=== PATIENT | male | born 1960 | race Caucasian/White ===

== ENCOUNTER 2022-03-21 17:32 | Emergency (ER) | payer BC, SELFPAY ==
[2022-03-21 17:47] VITALS: BP 174/92; PULSE 86; RESP 20; TEMP 37.3; O2SAT 98; BMI 40.4
[2022-03-21 18:30] VITALS: BP 168/86; PULSE 80; RESP 22; O2SAT 97
--- NOTE | 2022-03-21 18:53 | CRLHL7_ITS ---
For Patients: As a result of the Cures Act, medical imaging exams and procedure reports are released immediately into your electronic medical record. You may view this report before your referring provider. If you have questions, please contact your health care provider. INDICATION: Chest pain, COVID. TECHNIQUE: Chest radiograph 1 view COMPARISON: None FINDINGS: Cardiovascular and mediastinum: The heart silhouette is normal in size and morphology. The mediastinum is normal in appearance. Lungs and pleural spaces: Both lungs are unremarkable in appearance. No sign of pleural effusion seen. No pneumothorax is identified. Bones and soft tissues: No significant findings. IMPRESSION: 1. No acute cardiopulmonary disease is seen. Dictated by Yrn Aguilar MD @ 03/21/2022 8:21:37 PM Dictated by: Yrn Aguilar MD @ 03/21/2022 20:21:45 (Electronically Signed)
[2022-03-21 19:00] VITALS: BP 177/94; PULSE 80; RESP 20; O2SAT 97
[2022-03-21 19:30] LABS: Basophils Absolute Auto 0.04 K/uL (0.00-0.30); Basophils Percent Auto 0.5 % (0.0-3.0); Eosinophils Absolute Auto 0.04 K/uL (0.00-0.50); Eosinophils Percent Auto 0.5 % (0.0-7.0); Hematocrit 41.4 % (37.0-53.0); Hemoglobin* 14.1 gm/dL (13.5-17.5); Immature Granulocytes Abs Auto 0.01 K/uL (0.00-0.30); Lymphocytes Percent Auto 8.5 % (20-44); Mean Corpuscular HGB Conc 34 gm/dL (32-36); Mean Corpuscular Hemoglobin 28 pg (26-34); Mean Corpuscular Volume 82 fL (80-100); Monocytes Percent Auto 11.3 % (0.0-11.0); Neutrophils Percent Auto 79.1 % (42.0-72.0); Platelet Count* 232 K/uL (140-440); RDW Coefficient of Variation % 12.9 % (11.5-15.5); Red Blood Count 5.07 m/uL (4.30-5.90); White Blood Count* 8.74 K/uL (4.50-11.00)
[2022-03-21 19:57] LABS: Chloride* 103 mmol/L (96-114)
[2022-03-21 19:58] LABS: Sodium* 139 mmol/L (135-149)
[2022-03-21 20:00] VITALS: BP 179/93; PULSE 80; RESP 20; O2SAT 98
[2022-03-21 20:00] LABS: Est. Creatinine Clearance* 63.22; Estimated Glomerular Filt Rate 86 ml/min
[2022-03-21 20:01] LABS: Blood Urea Nitrogen* 14 mg/dL (7-30); Calcium* 8.7 mg/dL (8.4-10.6); Carbon Dioxide* 28 mmol/L (20-32); Glucose* 94 mg/dL (60-115)
[2022-03-21 20:19] LABS: Troponin I* < 0.01 ng/mL (0.01-0.04)
[2022-03-21] MEDS: POTASSIUM BICARB 25 MEQ EFFERVESCENT TAB 50 MEQ PO (20:47)
--- NOTE | 2022-03-21 20:59 | ED.GENADULT ---
HPI - General Adult General Date Seen: 03/21/22 Chief complaint: Chest Pain Stated complaint: High BP, Covid+ as of today Time Seen by Provider: 03/21/22 18:13 Source: patient History of Present Illness HPI narrative: 61-year-old male presents with 1-2 days of illness. Yesterday he had a mild sore throat. This morning he had more sore throat and a little cough. He did a COVID test which was immediately positive. Because of risk factors for severe COVID he was referred to urgent care. He went to Urgent Care where his systolic blood pressure was 200 and he reported slight chest discomfort. A referred him to the emergency department. He is not having shortness of breath. He is not having any fever. He feels mildly ill from the COVID. He has been vaccinated 3 times. Patient has no history of heart disease. He does have a history of hypertension. He stop taking his blood pressure medications around the beginning of August 2021. He moved to [place] from [place] last May. He has not establish himself with a new doctor and has not gotten refills for his blood pressure medicines or his medicines for depression. He reports generally otherwise feeling well. He does not have chest pain or unusual dyspnea. He does not smoke. Related Data Previous Rx's Medication Instructions Recorded chlorthalidone 25 mg tablet 12.5 mg PO DAILY #30 tabs 03/21/22 losartan 100 mg tablet 50 mg PO DAILY #30 tabs 03/21/22 nirmatrelvir 300 mg (150 mg x See Rx Instructions PO .COMPLEX 03/21/22 2)-ritonavir 100 mg tablet (EUA) #30 tabs (Paxlovid 300 mg () potassium chloride 10 mEq 10 meq PO DAILY #30 caps 03/21/22 capsule,extended release Allergies Allergy/AdvReac Type Severity Reaction Status Date / Time No Known Drug Allergies Allergy Verified 03/21/22 16:06 Review of Systems Narrative: No other illness except for symptoms noted above in the last 1-2 days PFSH PFS Social History Smoking Status: Never smoker Exam Narrative: Exam Narrative: He is alert and appears in no distress. He gives his own history. Eating is unlabored. Respirations are clear to auscultation. Cardiovascular: S1, S2, regular rate and rhythm. No murmur gallop or rub. Abdomen: Bowel sounds active. Abdomen is soft without tenderness or mass. Extremities without edema. Good peripheral perfusion. Electrocardiogram shows normal sinus rhythm with nonspecific ST wave changes in the inferior leads primarily. Chest x-ray no acute findings. Const: Vital Signs, click to edit/add: Vital Signs - 24 hr 03/21/22 17:47 03/21/22 18:30 03/21/22 19:00 Temperature 99.2 F Pulse Rate [Left P ulse Oximeter] 86 80 80 Respiratory Rate 20 22 20 Blood Pressure [Ri ght Upper Arm] 174/92 H 168/86 H 177/94 H Pulse Oximetry 98 97 97 Oxygen Delivery Me thod Room Air Room Air Room Air 03/21/22 20:00 Temperature Pulse Rate [Left P ulse Oximeter] 80 Respiratory Rate 20 Blood Pressure [Ri ght Upper Arm] 179/93 H Pulse Oximetry 98 Oxygen Delivery Me thod Room Air Documenting provider has reviewed patient's vital signs: yes Course Vital Signs Vital signs: Initial Vital Signs Respiratory Effort Spontaneous 03/21/22 17:46 Respiratory Depth Normal 03/21/22 17:46 Vital Signs Temperature 99.2 F 03/21/22 17:47 Pulse Rate 86 03/21/22 17:47 Respiratory Rate 20 03/21/22 17:47 Blood Pressure 174/92 H 03/21/22 17:47 Pulse Oximetry 98 03/21/22 17:47 Oxygen Delivery Method 03/21/22 17:47 Temperature 99.2 F 03/21/22 17:47 Pulse Rate 80 03/21/22 20:00 Respiratory Rate 20 03/21/22 20:00 Blood Pressure 179/93 H 03/21/22 20:00 Pulse Oximetry 98 03/21/22 20:00 Oxygen Delivery Method 03/21/22 20:00 Medical Decision Making Lab Data Labs: Lab Results 03/21/22 03/21/22 Range/Units 19:20 19:20 WBC 8.74 (4.50-11.00) K/uL RBC 5.07 (4.30-5.90) m/uL Hgb 14.1 (13.5-17.5) gm/dL Hct 41.4 (37.0-53.0) % MCV 82 (80-100) fL MCH 28 (26-34) pg MCHC 34 (32-36) gm/dL RDW Coeff of Sanchez 12.9 (11.5-15.5) % Plt Count 232 (140-440) K/uL Neut % (Auto) 79.1 H (42.0-72.0) % Lymph % (Auto) 8.5 L (20-44) % [place] % (Auto) 11.3 H (0.0-11.0) % Eos % (Auto) 0.5 (0.0-7.0) % Baso % (Auto) 0.5 (0.0-3.0) % Neut # (Auto) 6.90 (1.7-7.0) K/uL Lymph # (Auto) 0.70 L (0.90-2.90) K/uL [place] # (Auto) 1.00 H (0.00-0.90) K/UL Eos # (Auto) 0.04 (0.00-0.50) K/uL Baso # (Auto) 0.04 (0.00-0.30) K/uL Abs Immat Gran (auto) 0.01 (0.00-0.30) K/uL Sodium 139 (135-149) mmol/L Potassium 3.0 L (3.6-5.1) mmol/L Chloride 103 (96-114) mmol/L Carbon Dioxide 28 (20-32) mmol/L BUN 14 (7-30) mg/dL Creatinine 1.0 (0.5-1.5) mg/dL Estimated Creat Clear 63.22 Estimated GFR 86 ml/min Glucose 94 (60-115) mg/dL Calcium 8.7 (8.4-10.6) mg/dL Troponin I < 0.01 L (0.01-0.04) ng/mL Discharge Plan Discharge Clinical Impression: COVID-19 virus infection, Uncontrolled hypertension, Chest tightness, Hypokalemia Additional Instructions: Find a primary care doctor to follow-up on your blood pressure, COVID, low potassium. Make this appointment in 1-2 weeks after your COVID is resolved. Return to the emergency department if increasing chest pain or more trouble breathing. Activity Level: Activity as Tolerated Prescriptions: New Paxlovid (EUA) 300 mg (150 mg x 2)-100 mg tablet See Rx Instructions .ROUTE .COMPLEX Qty: 30 0RF Rx Instructions: take TWO 150 mg tablets of nirmatrelvir with ONE 100 mg tablet of ritonavir twice daily for 5 days chlorthalidone 25 mg tablet 12.5 mg PO DAILY Qty: 30 2RF losartan 100 mg tablet 50 mg PO DAILY Qty: 30 2RF potassium chloride 10 mEq capsule, extended release 10 meq PO DAILY Qty: 30 0RF Follow Up/Referrals: Provider,Not a Local [Primary Care Provider] - (Get appointment with a doctor in the next 1-2 weeks. He will need lab tests to follow up your low potassium and your kidney function.)
[2022-03-22 12:19] LABS: Slide Review Reflex No
== END 2022-03-21 20:50 | disposition home or self-care (01) ==
PROVIDERS: Emergency Provider Family Medicine
DX: U07.1 COVID-19 (principal); I10 Essential (primary) hypertension; E87.6 Hypokalemia
CPT/HCPCS: 36415; 71045; 80048; 84484; 85025; 93005; 99283; 99284; 99285; A9270